=== PATIENT | male | born 1955 | race Caucasian/White ===

== ENCOUNTER → 2018-07-21 | Outpatient (CLI) | payer OTHER | END | disposition home or self-care (01) | LOC: CVU 09:46 | PROVIDERS: ATTEND Internal Medicine Cardiovascular Disease | DX: I49.3 Ventricular premature depolarization (principal); I10 Essential (primary) hypertension; E78.5 Hyperlipidemia, unspecified; C44.90 Unspecified malignant neoplasm of skin, unspecified | CPT/HCPCS: 93306 ==

== ENCOUNTER 2018-09-02 05:58 | Day surgery (SDC) | payer OTHER ==
[2018-08-31 14:43] VITALS: BP 138/89
[2018-08-31 15:27] LABS: ALANINE AMINOTRANSFERASE 25 U/L (12-78); ALBUMIN 3.5 g/dL (3.4-5.0); ANION GAP 6 mmol/L (5-15); CALCIUM 9.1 mg/dL (8.5-10.1); CHLORIDE 110 mmol/L (98-107)
[2018-08-31 15:29] LABS: ALKALINE PHOSPHATASE 45 U/L (45-117); BILIRUBIN,TOTAL 0.4 mg/dL (0.2-1.0); TOTAL PROTEIN 6.7 g/dL (6.4-8.2)
[~2018-09-02] VITALS: Ht 170.2 cm; Wt 85.3 kg
[~2018-09-02 05:58] MED LIST: ANAS1TAB PO; ASPI81TA45 PO; CLOM50TA17 PO; CYAN1TAB6 PO; GLUC-121 PO; LACT1CAP35 PO; LISI-170 PO; MAGNESIUM PO; METO25TA35 PO; PREGNENOLONE PO; SIMV20TA3 PO; TESTOSTERONE SC; VITAMIN C PO; [UNRECOGNIZED DRUG - OTHER] PO; [UNRECOGNIZED DRUG - OTHER] PO; [UNRECOGNIZED DRUG - OTHER] PO; [UNRECOGNIZED DRUG - OTHER] SC
[2018-09-02] MEDS ORDERED: BUPIVACAINE/PF-EPI 0.5% 1:200K ONE (06:38)
[2018-09-02] MEDS ORDERED: LACTATED RINGERS 1,000 ML IV SCH ×2 (06:49→08:31)
[2018-09-02] MEDS ORDERED: ONDANSETRON ODT 8 MG PO ONE (07:00)
[2018-09-02] MEDS ORDERED: ACETAMINOPHEN 500 MG TABLET PO ONE (07:00)
[2018-09-02] MEDS ORDERED: GABAPENTIN 300 MG CAPSULE PO ONE (07:00)
[2018-09-02] MEDS ORDERED: FENTANYL PF 250 MCG/5ML ONE (07:16)
[2018-09-02] MEDS ORDERED: MIDAZOLAM 1 MG/ML, 2ML ONE (07:16)
[2018-09-02] MEDS ORDERED: KETOROLAC 30 MG/1 ML ONE (07:41)
[2018-09-02] MEDS ORDERED: HYDROmorphone 2 MG/ML, 1ML IVPush PRN ×2 (08:00→09:00)
[2018-09-02] MEDS ORDERED: ONDANSETRON 2MG/ML, 2ML IV PRN (08:00)
[2018-09-02] MEDS ORDERED: hydrALAzine 20 MG/ML, 1ML IV PRN (08:00)
[2018-09-02] MEDS ORDERED: SCOPOLAMINE PATCH, 1.5MG PATCH.TD72 TD PRN (08:00)
[2018-09-02] MEDS ORDERED: MIDAZOLAM 1 MG/ML, 2ML IV PRN (08:00)
[2018-09-02] MEDS ORDERED: PROMETHAZINE 25 MG/ML, 1ML IV PRN (08:00)
[2018-09-02] MEDS ORDERED: ALBUTEROL/IPRATROPIUM 2.5MG/0.5MG, 3 ML NPPB PRN (08:00)
[2018-09-02] MEDS ORDERED: MEPERIDINE/PF 25MG/0.5ML IVPush PRN (08:00)
[2018-09-02] MEDS ORDERED: METOPROLOL 1 MG/ML, 5ML IV PRN (08:00)
[2018-09-02] MEDS ORDERED: FENTANYL PF 100 MCG/2ML IV PRN (08:00)
[2018-09-02] MEDS ORDERED: PROPOFOL 10 MG/ML, 20ML ONE (08:06)
[2018-09-02] MEDS ORDERED: CEFAZOLIN 1,000 MG ONE (08:06)
[2018-09-02] MEDS ORDERED: NEOSTIGMINE 1 MG/ML, 10ML ONE (08:06)
[2018-09-02] MEDS ORDERED: ROCURONIUM 10MG/ML,5ML ONE (08:06)
[2018-09-02] MEDS ORDERED: SUCCINYLCHOLINE 20 MG/ML, 10ML ONE (08:06)
[2018-09-02] MEDS ORDERED: GLYCOPYRROLATE 0.2MG/1ML, 5ML ONE (08:06)
[2018-09-02] MEDS ORDERED: OXYcodone 5 MG/5 ML ORAL.SOL UDC ONE (08:37)
[2018-09-02] MEDS: OXYcodone 5 MG/5 ML ORAL.SOL UDC PO PRN ×2 (08:38→11:54)
[2018-09-02] MEDS ORDERED: ONDANSETRON 2MG/ML, 2ML IVPush PRN (09:00)
[2018-09-02] MEDS ORDERED: HYDROcodone/APAP 5/325 TABLET PO PRN (09:00)
== END 2018-09-02 12:20 | disposition home or self-care (01) ==
LOC: OUT 05:58
PROVIDERS: ATTEND Thoracic Surgery (Cardiothoracic Vascular Surgery)
DX: K40.90 Unilateral inguinal hernia, without obstruction or gangrene, not specified as recurrent (principal); E78.00 Pure hypercholesterolemia, unspecified; I10 Essential (primary) hypertension; Z98.890 Other specified postprocedural states; Z98.52 Vasectomy status; Z79.82 Long term (current) use of aspirin; Z79.899 Other long term (current) drug therapy; Z72.89 Other problems related to lifestyle
CPT/HCPCS: 36415; 49650; 80053; 93005; C1727; C1781; J0330; J0690; J2250; J2704; J2710; J3010; J3490; J7120; Q0162; J1885